=== PATIENT | female | born 1955 | race African-American/Black ===

== ENCOUNTER 2019-07-29 12:06 | Outpatient (CLI) | payer BC, SELFPAY ==
--- NOTE | ~2019-07-29 | XR_ITS ---
XR hip LT min 2V DATE: 07/29/2019 12:32 INDICATION: Left hip pain. No injury. TECHNIQUE: AP, lateral and crosstable lateral views of left hip COMPARISON: None FINDINGS: There is minimal left hip osteoporosis. No fracture or dislocation, avascular necrosis or b one destruction of the left hip is evident. Osteitis pubis. IMPRESSION: Minimal left hip osteoarthritis Osteitis pubis Reviewed, dictated and finalized at location A. 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
--- NOTE | ~2019-07-29 | XR_ITS ---
XR lumbar spine min 4V DATE: 07/29/2019 12:32 INDICATION: Low back pain, left sciatica. TECHNIQUE: AP, lateral, coned lateral lumbosacral and bilateral oblique views COMPARISON: 12/07/2012 MRI lumbar spine FINDINGS: There is mild rotatory dextroscoliosis of the lumbar spine. There is mild degenerative spurring of the lower thoracic spine. There is prominent degenerative change at the lower lumbar and lumbosacral facet joints. No pars inte rarticularis fracture is evident. There is grade 1 anterolisthesis at L5-S1. There is prominent degen erative disease at L5-S1. No fracture or bone destruction of the lumbar spine is evident. The sacroiliac joints are intact. IMPRESSION: Mild rotatory dextro scoliosis Grade 1 anterolisthesis and prominent degenerative disc disease at L5-S1. Reviewed, dictated and finalized at location A. IC [employer]
== END 2019-07-29 12:07 | disposition home or self-care (01) ==
LOC: ANHIMG 12:12
PROVIDERS: PCP Family Medicine; Visit Provider Family Medicine
DX: M25.552 Pain in left hip (principal); M54.42 Lumbago with sciatica, left side; M16.12 Unilateral primary osteoarthritis, left hip; M86.8X8 Other osteomyelitis, other site; M41.86 Other forms of scoliosis, lumbar region
CPT/HCPCS: 72110; 73502